=== PATIENT | male | born 1940 | race Caucasian/White ===

== ENCOUNTER → 2018-07-23 | Outpatient (CLI) | payer BC, MEDICARE ==
[~2018-07-23] MED LIST: /ACETCOD2T PO
[2018-07-23 12:34] LABS: BLOOD UREA NITROGEN 18 MG/DL (7-18); CALCIUM LEVEL 9.2 MG/DL (8.8-10.2); CARBON DIOXIDE LEVEL 28 MEQ/L (21-32); CHLORIDE LEVEL 108 MEQ/L (98-107); CREATININE FOR GFR 1.13 MG/DL (0.70-1.30); GLOMERULAR FILTRATION RATE > 60.0 (>42); GLUCOSE, FASTING 111 MG/DL (70-100); POTASSIUM SERUM 4.4 MEQ/L (3.5-5.1); SODIUM LEVEL 141 MEQ/L (136-145)
== END ==
LOC: M LAB 11:18
PROVIDERS: ATTEND Physician Assistant Medical
DX: Z01.810 Encounter for preprocedural cardiovascular examination (principal); D16.21 Benign neoplasm of long bones of right lower limb; E11.9 Type 2 diabetes mellitus without complications

== ENCOUNTER → 2018-08-06 | Outpatient (REF) | payer BC | LOC: M LAB REF 18:30 | PROVIDERS: ATTEND Orthopaedic Surgery | DX: R22.41 Localized swelling, mass and lump, right lower limb (principal) ==

== ENCOUNTER → 2022-01-30 | Outpatient (REF) | payer BC ==
[~2022-01-30] MED LIST changes: -/ACETCOD2T PO; +ACET1TAB15 PO
[2022-01-31 13:34] LABS: HEMOGLOBIN A1c 6.6 %
== END ==
LOC: M SFHCADAM 15:41
PROVIDERS: ATTEND Family Medicine
DX: E11.9 Type 2 diabetes mellitus without complications (principal)